=== PATIENT | female | born 1970 | race African-American/Black ===

== ENCOUNTER 2020-06-21 16:12 | Emergency (ER) | payer OTHER ==
[~2020-06-21] VITALS: Ht 170.2 cm; Wt 99.8 kg
[2020-06-21 16:50] VITALS: BP 150/94
[2020-06-22] MEDS ORDERED: MORPHINE SULFATE 4 MG/ML SYR/VIAL ONE (12:33)
[2020-06-22] MEDS ORDERED: ONDANSETRON HCL 4 MG/2 ML VIAL ONE (12:34)
== END 2020-06-21 17:20 | disposition home or self-care (01) ==
LOC: ER 16:12
DX: J03.90 Acute tonsillitis, unspecified (principal); Z91.040 Latex allergy status